=== PATIENT | female | born 1940 | race Caucasian/White ===

== ENCOUNTER 2018-06-20 14:54 | Emergency (ER) | payer MEDICARE, MEDICAID ==
[~2018-06-20] VITALS: Ht 154.9 cm; Wt 62.7 kg
[2018-06-20] MEDS ORDERED: GLIP10 PO (15:15)
[2018-06-20] MEDS ORDERED: AMLO2.5T4 PO (15:15)
[2018-06-20] MEDS ORDERED: METF-960 PO (15:15)
[2018-06-20] MEDS ORDERED: LOSA25TA41 PO (15:15)
[2018-06-20 15:18] LABS: GLUCOSE,POINT OF CARE 220 MG/DL (70-110)
[2018-06-20] MEDS ORDERED: SODIUM CHLORIDE 0.9% 100 ML ONE (17:13)
[2018-06-20] MEDS ORDERED: IOVERSOL 320 MG/ML 100 ML VIAL ONE (17:13)
[2018-06-20 17:38] LABS: BASOPHILS % (AUTO) 0.3 % (0.0-2.0); EOSINOPHILS % (AUTO) 0.7 % (1.0-6.0); HEMATOCRIT 37.6 % (36-46); HEMOGLOBIN 12.4 g/dL (12.0-16.0); LYMPHOCYTES # (AUTO) 1.4 K/uL (1.0-4.8); LYMPHOCYTES % (AUTO) 10.1 % (22.0-44.0); MEAN CORPUSCULAR HEMOGLOBIN 30.5 pg (26.0-34.0); MEAN CORPUSCULAR HGB CONC 32.9 G/dL (31.0-37.0); MEAN CORPUSCULAR VOLUME 93 fL (80-100); MONOCYTES # (AUTO) 0.8 K/uL (0.1-1.0); NEUTROPHILS # (AUTO) 11.3 K/uL (1.8-7.7); NEUTROPHILS % (AUTO) 82.9 % (40.0-70.0); PLATELET COUNT (AUTO) 265 K/uL (150-450); RED BLOOD CELL COUNT(AUTO) 4.06 MIL/uL (4.00-5.20); RED CELL DISTRIBUTION WIDTH 13.2 % (11.5-14.5)
[2018-06-20 17:48] LABS: ANION GAP 10 mmol/L (8-16); CARBON DIOXIDE 28 mmol/L (22-29); CHLORIDE 99 mmol/L (98-107); CREATININE 0.77 mg/dL (0.60-1.30); GLUCOSE,RANDOM 237 mg/dL (70-110); POTASSIUM 4.7 mmol/L (3.5-5.1); SODIUM SERUM 137 mmol/L (136-145); UREA NITROGEN, BLOOD 9 mg/dL (7-18)
[2018-06-20 17:51] LABS: GLOMERULAR FILTR. RATE CALC > 60 mL/min (>60)
[2018-06-20 17:55] LABS: ALANINE AMINOTRANSFERASE 18 U/L (12-78); ALBUMIN 3.9 g/dL (3.4-5.0); ALKALINE PHOSPHATASE 112 U/L (46-116); ASPARTATE AMINOTRANSFERASE 7 U/L (15-37); BILIRUBIN,TOTAL 0.2 mg/dL (0.1-1.0); TOTAL PROTEIN, SERUM 8.9 g/dL (6.4-8.2)
[2018-06-20] MEDS ORDERED: PredniSONE 20 MG TABLET PO ONE (20:30)
[2018-06-20] MEDS ORDERED: AMOX TR/POT CLAV 875 MG/125 MG TABLET PO ONE (20:30)
[2018-06-20] MEDS ORDERED: OxyCODONE HCL/ACETAMINOPHEN 5-325 MG TABLET PO ONE (20:30)
[2018-06-20 20:50] VITALS: BP 148/88
== END 2018-06-20 20:51 | disposition home or self-care (01) ==
LOC: EMS 14:54
DX: K11.5 Sialolithiasis (principal); E11.9 Type 2 diabetes mellitus without complications; I10 Essential (primary) hypertension; Z79.899 Other long term (current) drug therapy; Z98.890 Other specified postprocedural states
CPT/HCPCS: 36415; 70491; 80053; 82962; 85025; 99284; J7050; J7512; Q9967